=== PATIENT | female | born 1935 | race African-American/Black ===

== ENCOUNTER → 2016-09-12 | Outpatient (CLI) | payer MEDICARE, OTHER ==
[2016-09-12 13:07] LABS: ALANINE AMINOTRANSFERASE 25 U/L (9-52); ALBUMIN 3.9 g/dL (3.5-5.0); ALKALINE PHOSPHATASE 95 U/L (38-126); ANION GAP 11 (5-19); ASPARTATE AMINO TRANSFERASE 22 U/L (14-36); BILIRUBIN,DIRECT 0.2 mg/dL (0.0-0.4); BILIRUBIN,TOTAL 0.5 mg/dL (0.2-1.3); BLOOD UREA NITROGEN 16 mg/dL (7-20); CALCIUM 9.3 mg/dL (8.4-10.2); CARBON DIOXIDE 29 mmol/L (22-30); CHLORIDE 103 mmol/L (98-107); CREATININE RESULT 0.72 mg/dL (0.52-1.25); GLUCOSE 102 mg/dL (75-110); POTASSIUM 4.1 mmol/L (3.6-5.0); TOTAL PROTEIN 7.1 g/dL (6.3-8.2)
[2016-09-13 12:27] LABS: CHOLESTEROL 253.59 mg/dL (0-200); Direct HDL 75 mg/dL (>40); TRIGLYCERIDES 117 mg/dL (<150)
[2016-09-13 12:38] LABS: DIRECT LDL 106 mg/dL (<100)
== END ==
LOC: OD 11:53
PROVIDERS: ATTEND Internal Medicine
DX: E78.5 Hyperlipidemia, unspecified (principal); I10 Essential (primary) hypertension; Z79.899 Other long term (current) drug therapy; R06.02 Shortness of breath; I25.10 Atherosclerotic heart disease of native coronary artery without angina pectoris; E34.0 Carcinoid syndrome; E05.90 Thyrotoxicosis, unspecified without thyrotoxic crisis or storm; I25.2 Old myocardial infarction; I36.1 Nonrheumatic tricuspid (valve) insufficiency; I48.0 Paroxysmal atrial fibrillation; Z79.01 Long term (current) use of anticoagulants
CPT/HCPCS: 36415; 80053; 80061

== ENCOUNTER 2016-11-13 12:20 | Emergency (ER) | payer MEDICARE, OTHER ==
--- NOTE | 2016-11-13 12:59 | ER Document Report ---
ED Medical Screen (RME) - General Chief Complaint: Ankle Pain Stated Complaint: RIGHT FOOT PAIN Time Seen by Provider: 11/13/16 12:57 Notes: Patient is brought in for right ankle pain. Patient is a poor historian due to having some confusion. Patient apparently has had a "sore" on her right ankle for 1 month. How this occurred is unknown. According to her son she was seen at the primary care physician's office and he referred her to the emergency department but the patient became confused and did not show up. Therefore the son brought her in today for evaluation. He denies knowing of any other systemic symptoms such as fevers chills or worsening confusion. No known trauma. TRAVEL OUTSIDE OF THE [place] IN LAST 30 DAYS: No - Related Data Allergies/Adverse Reactions: oxycodone HCl [From Percocet] Allergy (Verified 11/13/16 12:25) Generalized Itching meperidine HCl [From Demerol] Adverse Reaction (Verified 11/13/16 12:25) HEADACHE Past Medical History - Social History Chew tobacco use (# tins/day): No Frequency of alcohol use: None Drug Abuse: None - Past Medical History Cardiac Medical History: Reports: Hx Heart Attack - 89, Hx Hypercholesterolemia, Hx Hypertension Pulmonary Medical History: Reports: Hx Asthma Denies: Hx Tuberculosis Neurological Medical History: Reports: Hx Cerebrovascular Accident - Mild Renal/ Medical History: Denies: Hx Peritoneal Dialysis Musculoskeltal Medical History: Reports Hx Arthritis, Reports Hx Musculoskeletal Deformity, Reports Hx Musculoskeletal Trauma Traumatic Medical History: Reports: Hx Fractures Past Surgical History: Reports: Hx Cholecystectomy, Hx Hysterectomy, Hx Orthopedic Surgery - RIGHT KNEE, ;left hip replacement 2012, Hx Tonsillectomy - Immunizations Hx Diphtheria, Pertussis, Tetanus Vaccination: Yes - 2010 Physical Exam - Vital signs Vitals: Temp Pulse Resp BP Pulse Ox 98.5 F 68 20 142/77 H 98 11/13/16 12:26 11/13/16 12:26 11/13/16 12:11/13/16 12:11/13/16 12:26 Course - Vital Signs Vital signs: Temp Pulse Resp BP Pulse Ox 98.5 F 68 20 142/77 H 98 11/13/16 12:26 11/13/16 12:26 11/13/16 12:26 11/13/16 12:26 11/13/16 12:26
[2016-11-13 13:32] LABS: ABSOLUTE EOSINOPHILS # (AUTO) 0.1 10^3/uL (0.0-0.6); ABSOLUTE LYMPHOCYTES (AUTO) 1.3 10^3/uL (0.5-4.7); ABSOLUTE MONOCYTES (AUTO) 0.3 10^3/uL (0.1-1.4); ABSOLUTE NEUT (AUTO) 3.2 10^3/uL (1.7-8.2); BASOPHILS % (AUTO) 0.3 % (0-2); HEMOGLOBIN 13.1 g/dL (12.0-15.5); MEAN CORPUSCULAR VOLUME 90 fl (80-97); WHITE BLOOD COUNT 4.9 10^3/uL (4.0-10.5)
[2016-11-13 13:45] LABS: ALANINE AMINOTRANSFERASE 33 U/L (9-52); ALBUMIN 4.4 g/dL (3.5-5.0); ALKALINE PHOSPHATASE 107 U/L (38-126); ANION GAP 11 (5-19); ASPARTATE AMINO TRANSFERASE 21 U/L (14-36); BILIRUBIN,DIRECT 0.3 mg/dL (0.0-0.4); BILIRUBIN,TOTAL 0.5 mg/dL (0.2-1.3); BLOOD UREA NITROGEN 13 mg/dL (7-20); CALCIUM 9.7 mg/dL (8.4-10.2); CARBON DIOXIDE 28 mmol/L (22-30); CHLORIDE 106 mmol/L (98-107); CREATININE RESULT 0.75 mg/dL (0.52-1.25); GLUCOSE 139 mg/dL (75-110); POTASSIUM 3.7 mmol/L (3.6-5.0); TOTAL PROTEIN 7.4 g/dL (6.3-8.2)
[2016-11-13 13:50] LABS: EOSINOPHILS % (AUTO) 1.3 % (0-6); HEMATOCRIT 38.4 % (36.0-47.0); HGB HCT DIFFERENCE 0.9; LYMPHOCYTES % (AUTO) 26.8 % (13-45); MEAN CORPUSCULAR HEMOGLOBIN 30.8 pg (27.0-33.4); MEAN CORPUSCULAR HGB CONC 34.1 g/dL (32.0-36.0); MONOCYTES % (AUTO) 5.8 % (3-13); RED BLOOD COUNT 4.25 10^6/uL (3.72-5.28); RED CELL DISTRIBUTION WIDTH 13.9 % (11.5-14.0); SEGMENTED NEUTROPHILS % (AUTO) 65.8 % (42-78)
--- NOTE | 2016-11-13 14:02 | RADIOLOGY REPORT (SQ) ---
EXAM DESCRIPTION: ANKLE RIGHT COMPLETE COMPLETED DATE/TIME: 11/13/2016 1:43 pm REASON FOR STUDY: pain/swelling COMPARISON: None. NUMBER OF VIEWS: Three views. TECHNIQUE: AP, lateral, and oblique radiographic images acquired of the right ankle. LIMITATIONS: None. FINDINGS: MINERALIZATION: Osteopenia. BONES: No acute fracture or dislocation. No worrisome bone lesions. JOINTS: No effusions. SOFT TISSUES: No soft tissue swelling. No foreign body. OTHER: No other significant finding. IMPRESSION: NO RADIOGRAPHIC EVIDENCE OF ACUTE INJURY. TECHNICAL DOCUMENTATION: JOB ID: [id number] [employer]- All Rights Reserved
--- NOTE | 2016-11-13 14:43 | ER Document Report ---
ED Extremity Problem, Lower - General Chief Complaint: Ankle Pain Stated Complaint: RIGHT FOOT PAIN Time Seen by Provider: 11/13/16 12:57 Mode of Arrival: Ambulatory Information source: Patient TRAVEL OUTSIDE OF THE [place] IN LAST 30 DAYS: No - HPI Patient complains to provider of: Pain, Swelling Location: Ankle Occurred: Other - 1 month Where: Home Onset/Duration: Persistent Quality of pain: Achy Notes: Patient is an 81-year-old female presenting to the emergency room with her son complaining of a nonhealing wound to the right medial malleolus that has been present for the past month, son is concerned that it is likely infected, he reports there is a small amount of drainage from the area at times, patient was seen by her primary care provider and placed on a seven-day course of Bactrim which did not seem to help at all, patient does not remember any specific injury that caused the wound, she is not a diabetic - Related Data Allergies/Adverse Reactions: oxycodone HCl [From Percocet] Allergy (Verified 11/13/16 12:25) Generalized Itching meperidine HCl [From Demerol] Adverse Reaction (Verified 11/13/16 12:25) HEADACHE Past Medical History - General Information source: Patient, Relative - Social History Smoking Status: Former Smoker Chew tobacco use (# tins/day): No Frequency of alcohol use: None Drug Abuse: None Family History: None - Past Medical History Cardiac Medical History: Reports: Hx Heart Attack - 1955, Hx Hypercholesterolemia, Hx Hypertension Pulmonary Medical History: Reports: Hx Asthma Denies: Hx Tuberculosis Neurological Medical History: Reports: Hx Cerebrovascular Accident - Mild Renal/ Medical History: Denies: Hx Peritoneal Dialysis Musculoskeltal Medical History: Reports Hx Arthritis, Reports Hx Musculoskeletal Deformity, Reports Hx Musculoskeletal Trauma Traumatic Medical History: Reports: Hx Fractures Past Surgical History: Reports: Hx Cholecystectomy, Hx Hysterectomy, Hx Orthopedic Surgery - RIGHT KNEE, ;left hip replacement 2012, Hx Tonsillectomy - Immunizations Hx Diphtheria, Pertussis, Tetanus Vaccination: Yes - 2010 Hx Pneumococcal Vaccination: 12/17/12 Review of Systems - Review of Systems Constitutional: No symptoms reported EENT: No symptoms reported Cardiovascular: No symptoms reported Respiratory: No symptoms reported Gastrointestinal: No symptoms reported Genitourinary: No symptoms reported Female Genitourinary: No symptoms reported Musculoskeletal: No symptoms reported Skin: See HPI Hematologic/Lymphatic: No symptoms reported Neurological/Psychological: No symptoms reported -: Yes All other systems reviewed and negative Physical Exam - Vital signs Vitals: Temp Pulse Resp BP Pulse Ox 98.5 F 68 20 142/77 H 98 11/13/16 12:26 11/13/16 12:26 11/13/16 12:26 11/13/16 12:26 11/13/16 12:26 Interpretation: Normal - General General appearance: Appears well, Alert - HEENT Head: Normocephalic, Atraumatic Eyes: Normal Pupils: PERRL - Respiratory Respiratory status: No respiratory distress Chest status: Nontender Breath sounds: Normal Chest palpation: Normal - Cardiovascular Rhythm: Regular Heart sounds: Normal auscultation Murmur: No - Abdominal Inspection: Normal Distension: No distension Bowel sounds: Normal Tenderness: Nontender Organomegaly: No organomegaly - Back Back: Normal, Nontender - Extremities General upper extremity: Normal inspection, Nontender, Normal color, Normal ROM , Normal temperature General lower extremity: Normal ROM, Normal temperature. No: Aleks's sign Ankle: Other - Just superior to the right medial malleolus is a 1.5 cm scabbed wound with a small amount of yellow crusting to the area, there is no fluctuance , no, there is mild swelling, distal sensation and motor is intact with 2+ DP pulses and brisk capillary refill - Neurological Neuro grossly intact: Yes Cognition: Normal Orientation: AAOx4 [place] Coma Scale Eye Opening: Spontaneous Pranay Coma Scale Verbal: Oriented [place] Coma Scale Motor: Obeys Commands Pranay Coma Scale Total: 15 Speech: Normal Motor strength normal: LUE, RUE, LLE, RLE Sensory: Normal - Psychological Associated symptoms: Normal affect, Normal mood - Skin Skin Temperature: Warm Skin Moisture: Dry Skin Color: Normal Course - Re-evaluation Re-evalutation: 11/13/16 23:54 Laboratory findings were discussed with patient and son at bedside which are unremarkable, patient was started on a 10 day course of clindamycin and provided with a prescription for Bactroban ointment as well, and information for follow-up with the wound care clinic, her information was faxed over to the wound care clinic for referral, they were advised to follow-up with the primary care provider in 1-2 days as well or return if any additional concerns, patient and son acknowledge understanding and agreement with this plan - Vital Signs Vital signs: Temp Pulse Resp BP Pulse Ox 97.9 F 68 18 144/78 H 98 11/13/16 15:00 11/13/16 15:00 11/13/16 15:00 11/13/16 15:00 11/13/16 15:00 - Laboratory Result Diagrams: 11/13/16 13:10 11/13/16 13:10 Laboratory results interpreted by me: 11/13/16 13:10 Glucose 139 H - Diagnostic Test Radiology reviewed: Image reviewed, Reports reviewed Discharge - Discharge Clinical Impression: Non-healing ulcer of foot Qualifiers: Laterality: right Non-pressure ulcer stage: limited to breakdown of skin Qualified Code(s): L97.511 - Non-pressure chronic ulcer of other part of right foot limited to breakdown of skin Condition: Stable Disposition: HOME, SELF-CARE Instructions: Foot or Leg Ulcer ([facility]) Additional Instructions: Follow up with your primary care provider and the wound care clinic in one to 2 days. Return to the emergency room immediately if symptoms worsen or any additional concerns. Prescriptions: Clindamycin HCl [Cleocin 150 mg Capsule] 450 mg PO Q6 10 Days capsule Mupirocin [Bactroban 2% Ointment 22 gm] 1 applic TP TID #1 tube Referrals: MAURICE HATCH MD [Primary Care Provider] - Follow up as needed RAUL CRUZ MD [ACTIVE STAFF] - Follow up as needed
[2016-11-13 15:14] VITALS: BP 144/78
== END 2016-11-13 15:20 | disposition home or self-care (01) ==
LOC: ER 12:20
DX: L97.511 Non-pressure chronic ulcer of other part of right foot limited to breakdown of skin (principal); I25.2 Old myocardial infarction; I10 Essential (primary) hypertension; J45.909 Unspecified asthma, uncomplicated; Z88.5 Allergy status to narcotic agent; Z87.891 Personal history of nicotine dependence
CPT/HCPCS: 36415; 80053; 85025; 99283

== ENCOUNTER → 2017-08-06 | Outpatient (CLI) | payer MEDICARE, OTHER ==
--- NOTE | 2017-08-06 12:10 | RADIOLOGY REPORT (SQ) ---
EXAM DESCRIPTION: CAROTID DOPPLER COMPLETED DATE/TIME: 08/06/2017 11:45 am REASON FOR STUDY: DIZZINESS R42 DIZZINESS AND GIDDINESS COMPARISON: CT brain 10/13/2015 TECHNIQUE: Grayscale ultrasound, Doppler velocity and spectra, and color Doppler images acquired of the extra-cranial carotid and vertebral arteries. Images stored on PACS. LIMITATIONS: None. FINDINGS: RIGHT CAROTID CCA Velocities: Within normal limits. ICA Velocities Peak systolic 0.42 m/s. End diastolic 0.14 m/s. Proximal ICA/CCA peak systolic ratio 1.2. Spectra normal. No significant plaque. LEFT CAROTID CCA Velocities: Within normal limits. ICA Velocities Peak systolic 0.38 m/s. End diastolic 0.12 m/s. Proximal ICA/CCA peak systolic ratio 1.4. Spectra normal. Minimal calcific plaque left carotid bifurcation without flow significant stenosis p roximal left ICA VERTEBRAL ARTERIES: Antegrade flow. Normal waveforms. SUBCLAVIAN ARTERIES: Not evaluated OTHER: No other significant finding. IMPRESSION: NO HEMODYNAMICALLY SIGNIFICANT STENOSIS. COMMENT: Quality ID #[id number]: Velocity criteria are extrapolated from the diameter data as defined by t he Society of Radiologists in Ultrasound Consensus Conference. Radiology 2003: 229; 340-346. TECHNICAL DOCUMENTATION: JOB ID: [id number] [employer]- All Rights Reserved Reading location - IP/workstation name: [email or web address]
== END ==
LOC: SP 10:49
PROVIDERS: ATTEND Specialist
DX: R42 Dizziness and giddiness (principal)
CPT/HCPCS: 93880

== ENCOUNTER → 2018-01-08 | Outpatient (CLI) | payer MEDICARE, OTHER ==
--- NOTE | 2018-01-10 16:19 | XCELERA REPORT ---
[address] [address] Lower Extremity Arterial Evaluation Name: FINA POWERS Age: 82 yrs Gender: Female : 1935 Patient Status: Outpatient Patient Location: Study Date: 01/08/2018 11:35 AM Procedure: A color flow and duplex scan of the lower extremity arteries was performed bilaterally with velocity and waveform anaylsis. Reason For Study: ULCER Ordering Physician: SHAHEEN GAITAN Performed By: Joel Fatima Measurements and Calculations Right Left WAREHOUSE PROCESSOR PSV 131.3 98.7 cm/sec Prox PFA PSV -103.7 -81.2 cm/sec Prox SFA PSV 0.00 -46.9 cm/sec Mid SFA PSV -120.1 -186.6cm/sec Dist SFA PSV -123.8 -115.7cm/sec Prox Pop A PSV 76.6 73.8 cm/sec Dist CANDIS PSV 53.3 29.2 cm/sec Dist BROADCASTING EQUIPMENT MECHANIC PSV 96.3 71.6 cm/sec Jj Pedis PSV 15.9 16.7 cm/sec Right Side Arterial Evaluation Normal velocity and triphasic waveforms noted from the Common Femoral artery to the Posterior Tibial artery. Biphasic with somewhat decreased flow in the Anterior Tibial artery . 20-49 % stenosis at the Anterior Tibial artery . . Ankle Brachial index was not done due to bandaging. Left Side Arterial Evaluation Normal velocity and triphasic waveforms noted from the Common Femoral artery to the Posterior Tibial artery. Biphasic with somewhat decreased flow in the Anterior Tibial artery . 20-49 % stenosis at the Anterior Tibial artery . . Ankle Brachial index was declined by patient. Interpretation Summary Mild hemodynamically significant lesions in the bilateral lower extremities, on duplex imaging, at rest. : SHAHEEN GAITAN > David Avelar
== END ==
LOC: SP 11:00
PROVIDERS: ATTEND Nurse Practitioner
DX: L97.312 Non-pressure chronic ulcer of right ankle with fat layer exposed (principal)
CPT/HCPCS: 93925

== ENCOUNTER → 2018-04-17 | Outpatient (CLI) | payer MEDICARE, OTHER ==
--- NOTE | 2018-04-17 12:32 | RADIOLOGY REPORT (SQ) ---
EXAM DESCRIPTION: LUMBAR SPINE COMPLETE COMPLETED DATE/TIME: 04/17/2018 11:46 am REASON FOR STUDY: LUMBAGO WITH SCIATICA, UNSPECIFIED SITE M54.40 LUMBAGO WITH SCIATICA, UNSPECIFIED SIDE COMPARISON: None. NUMBER OF VIEWS: Five views including obliques. TECHNIQUE: AP, lateral, oblique, and sacral radiographic images acquired of the lumbar spine. LIMITATIONS: None. FINDINGS: MINERALIZATION: Osteopenia. SEGMENTATION: Normal. No transitional anatomy. ALIGNMENT: Scoliosis. Grade 2 anterolisthesis of L4 on L5. VERTEBRAE: There is mild anterior wedging of T12 that does not appear to be acute. DISCS: Disc spaces are narrowed throughout the lumbar spine. Small marginal osteophytes are present several levels. POSTERIOR ELEMENTS: Hypertrophic facet changes are seen from L3-S1. No definite pars defects are see n at L4. HARDWARE: None in the spine. PARASPINAL SOFT TISSUES: The common iliac arteries appear ectatic. PELVIS: Intact as visualized. No fractures or worrisome bone lesions. SI joints intact. OTHER: No other significant finding. IMPRESSION: Osteopenia. Scoliosis. Grade 2 anterolisthesis of L4 on L5 with no obvious pars defect s. Multilevel degenerative disc disease and spondylosis. Facet arthropathy. Ectatic common iliac a rteries. TECHNICAL DOCUMENTATION: JOB ID: [id number] [employer]- All Rights Reserved Reading location - IP/workstation name: [email or web address]
== END ==
LOC: OD 11:03
PROVIDERS: ATTEND Internal Medicine
DX: M51.16 Intervertebral disc disorders with radiculopathy, lumbar region (principal)
CPT/HCPCS: 72110